=== PATIENT | female | born 1970 | race Caucasian/White ===

== ENCOUNTER 2018-08-04 09:54 | Emergency (ER) | payer BC ==
[2018-08-04 10:02] VITALS: BP 111/79
--- NOTE | 2018-08-04 10:07 | EDPHY ---
H & P Stated Complaint: Fooshed 2 days ago-R wrist injury Time Seen by Provider: 08/04/18 10:06 - Personal History LMP (Females 10-55): 22-28 Days Ago - Medical/Surgical History Hx Asthma: No Hx Chronic Respiratory Disease: No Hx Diabetes: No Hx Cardiac Disease: No Hx Renal Disease: No Hx Cirrhosis: No Hx Alcoholism: No Hx HIV/AIDS: No Hx Splenectomy or Spleen Trauma: No Other PMH: liposarcoma - Social History Smoking Status: Never smoked Constitutional: Initial Vital Signs Temperature (C) 36.4 C 08/04/18 10:00 Heart Rate 78 08/04/18 10:00 Respiratory Rate 16 08/04/18 10:00 Blood Pressure 111/79 08/04/18 10:00 O2 Sat (%) 97 08/04/18 10:00 O2 Delivery Mode Room Air Allergies/Adverse Reactions: codeine Allergy (Verified 08/04/18 09:59) ondansetron [From Zofran] Allergy (Verified 08/04/18 09:59) Home Medications: Medication Instructions Recorded DEXILANT 08/04/18 Medical Decision Making - Diagnostics Imaging Results: Imaging Impressions Wrist X-Ray 08/04/18 10:03 Impression: Negative for fracture. Imaging: I viewed and interpreted images myself ED Course/Re-evaluation: CHIEF COMPLAINT: Right wrist injury HISTORY OF PRESENT ILLNESS: This is a healthy 48 y/o female who tripped and fell on her outstretched right wrist two days ago and complains of right wrist pain. She has normal range of motion, but flexion does elicit some pain. No weakness, paresthesias, or other trauma. REVIEW OF SYSTEMS: A comprehensive 10 system review of systems is otherwise negative aside from elements mentioned in the history of present illness and medical decision making. PHYSICAL EXAM: HR, BP, O2 Sat, RR. Temp noted General Appearance: Alert, well hydrated, appropriate, and non-toxic appearing. Head: Atraumatic without scalp tenderness or obvious injury Eyes: Pupils equal, round, reactive to light and accommodation, EOMI, no trauma , no injection. Nose: Atraumatic, no rhinorrhea, clear. Throat: Mucus membranes moist. Neck: Supple. Respiratory: No distress. Cardiovascular: Right radial pulse intact. Good capillary refill all extremities. Musculoskeletal: Normal active ROM of all extremities, atraumatic. Tenderness over right anatomical snuffbox. Neurological: Alert, appropriate, and interactive. Nonfocal. Skin: No rashes, good turgor, no nodules on palpation. PAST MEDICAL HISTORY: Denies PAST SURGICAL HISTORY: Denies SOCIAL HISTORY: . Lives in [place]. DIAGNOSTICS/PROCEDURES/CRITICAL CARE TIME: Right wrist x-ray: no fracture. DIFFERENTIAL DIAGNOSIS: The differential diagnosis for the patient's injury included but was not limited to sprain, fracture, ligamentous injury, contusion , muscular strain. MEDICAL DECISION MAKING: This is a healthy 48 y/o female who presents with a right wrist injury secondary to a mechanical fall two days ago. She has mild tenderness over her right anatomical snuff box with normal range of motion and no visible trauma. She is neurovascularly intact. X-ray is negative for fracture. She has been placed in a velcro thumbspika splint and will be discharged with standard sprain care and follow up instructions. Referral to ortho provided. She is comfortable with this plan. Departure - Departure Disposition: Home, Routine, Self-Care Clinical Impression: Sprain of wrist, right Qualifiers: Encounter type: initial encounter Qualified Code(s): S63.501A - Unspecified sprain of right wrist, initial encounter Condition: Good Instructions: Wrist Sprain (ED) Additional Instructions: 1. Wear splint until follow up. Okay to take off to shower. 2. Use Tylenol and ibuprofen as directed as needed for pain over the next few days. 3. Follow up with orthopedist in the next week for reassessment if not completely better. 4. Return for worsening of condition. Referrals: Yoselin Hall MD [Primary Care Provider] - As per Instructions Yvon Carr MD [Medical Doctor] - As per Instructions Report Scribed for: Maxwell Figueroa Report Scribed by: Izzy Strauss Date of Report: 08/04/18 Time of Report: 12:45
== END 2018-08-04 10:33 | disposition home or self-care (01) ==
DX: S63.501A Unspecified sprain of right wrist, initial encounter (principal); W19.XXXA Unspecified fall, initial encounter; Y92.9 Unspecified place or not applicable; Y93.9 Activity, unspecified; Y99.9 Unspecified external cause status
CPT/HCPCS: L3807

== ENCOUNTER 2018-08-13 08:11 | Day surgery (SDC) | payer BC ==
[2018-08-13] MEDS ORDERED: LIDOCAINE 1% 2 ML INJ ID PRN (08:16)
[2018-08-13] MEDS ORDERED: LR 1,000 ML IV ONE (08:16)
[2018-08-13] MEDS ORDERED: LIDOCAINE 1% 300 MG/30 ML SDV ONE (08:45)
[2018-08-13] MEDS ORDERED: VASOPRESSIN 20 UNIT/ML VIAL ONE (08:45)
[2018-08-13] MEDS ORDERED: SILVER NITRATE APPLICATOR 1 APPL TP ONE (08:45)
[2018-08-13] MEDS ORDERED: ACETIC ACID IRR SOLN 0.25% 1,000 ML BTL ONE (08:46)
[2018-08-13] MEDS ORDERED: MIDAZOLAM 2 MG/2 ML VIAL IVP ONE (09:00)
--- NOTE | 2018-08-13 09:00 | PDANEPAE ---
ANE History of Present Illness CERVICAL conization ANE Past Medical History - Cardiovascular History Hx Hypertension: No Hx Arrhythmias: No Hx Chest Pain: No Hx Coronary Artery / Peripheral Vascular Disease: No Hx CHF / Valvular Disease: No Hx Palpitations: No - Pulmonary History Hx COPD: No Hx Asthma/Reactive Airway Disease: No Hx Recent Upper Respiratory Infection: No Hx Oxygen in Use at Home: No Hx Sleep Apnea: No Sleep Apnea Screening Result - Last Documented: Negative - Neurologic History Hx Cerebrovascular Accident: No Hx Seizures: No Hx Dementia: No - Endocrine History Hx Diabetes: No - Renal History Hx Renal Disorders: Yes Renal History Comment: 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 constipation - Other Health History Other Health History: none - Chronic Pain History Chronic Pain: No - Surgical History Prior Surgeries: liposarcoma removal in retroperitonial surgery x6. breast implants. cyst removed from left breast. deviated septum ANE Review of Systems Review of systems is: negative Review of Systems: - Exercise capacity METS (RN): 6 METS ANE Patient History - Allergies Allergies/Adverse Reactions: codeine Allergy (Verified 08/09/18 10:56) light- headed, passed out ondansetron [From Zofran] Allergy (Verified 08/09/18 10:56) dry heaves - Home Medications Home medications: home medication list seen and reviewed Home Medications: DEXILANT 08/04/18 [Last Taken 08/12/18] Ranitidine HCl BID AT 7AM AND 3PM 08/09/18 [Last Taken 08/13/18 0627] - NPO status NPO Since - Liquids (Date): 08/13/18 NPO Since - Liquids (Time): 06:27 NPO Since - Solids (Date): 08/12/18 NPO Since - Solids (Time): 19:30 - Anes Hx Anes Hx: no prior problems - Smoking Hx Smoking Status: Never smoked - Family Anes Hx Family Hx Anesthesia Complications: none ANE Labs/Vital Signs - Vital Signs Blood Pressure: 117/88 Heart Rate: 62 Respiratory Rate: 16 O2 Sat (%): 97 Height: 172.72 cm Weight: 58.967 kg ANE Physical Exam - Airway Neck exam: FROM Mallampati Score: Class 1 Mouth exam: normal dental/mouth exam - Pulmonary Pulmonary: no respiratory distress - Cardiovascular Cardiovascular: regular rate and rhythym - ASA Status ASA Status: II ANE Anesthesia Plan Anesthesia Plan: GA with mask
[2018-08-13] MEDS ORDERED: MONSELS-FERRIC SUBSULFATE 8 GM SDV TP ONE (09:02)
[2018-08-13] MEDS ORDERED: MIDAZOLAM 2 MG/2 ML VIAL ONE (09:06)
[2018-08-13] MEDS ORDERED: PROPOFOL 200 MG/20 ML VIAL ONE (09:07)
[2018-08-13] MEDS ORDERED: fentaNYL 100 MCG/2 ML INJ ONE ×2 (09:07→11:10)
[2018-08-13] MEDS ORDERED: LIDOCAINE 2% 5 ML SDV ONE (09:07)
[2018-08-13] MEDS ORDERED: POTASSIUM IODIDE/IODINE (LUGOL'S SOLN) 500 ML TP ONE (09:30)
--- NOTE | 2018-08-13 09:38 | PDGENHP ---
History and Physical - Chief Complaint cervical dysplasia - History of Present Illness Persistent cervical dysplasia on colposcopy. pt is done with childbearing. Due to large past surgical history, pt has opted to proceed with cold knife cone biopsy. No other issues today. History Information - Allergies/Home Medication List Allergies/Adverse Reactions: codeine Allergy (Verified 08/09/18 10:56) light- headed, passed out ondansetron [From Zofran] Allergy (Verified 08/09/18 10:56) dry heaves Home Medications: DEXILANT 08/04/18 [Last Taken 08/12/18] Ranitidine HCl BID AT 7AM AND 3PM 08/09/18 [Last Taken 08/13/18 0627] I have personally reviewed and updated: family history, medical history, social history, surgical history (Lioposarcoma - numerous surgeries) - Surgical History Additional surgical history: numerous laparotomies for liposarcoma - Family History Positive for: non-pertinent - Social History Smoking Status: Never smoked Alcohol Use: Occasionally Drug Use: None Review of Systems Review of Systems: ROS: 10pt was reviewed & negative except for what was stated in HPI & below Physical Exam Physical Exam: Temp Pulse Resp BP Pulse Ox 36.7 C 62 16 117/88 H 97 08/13/18 08:31 08/13/18 09:00 08/13/18 09:00 08/13/18 09:00 08/13/18 09:00 Constitutional: no apparent distress Eyes: PERRL Ears, Nose, Mouth, Throat: moist mucous membranes Cardiovascular: regular rate and rhythym Respiratory: no respiratory distress Gastrointestinal: normoactive bowel sounds (vertical midline scar) Genitourinary: no bladder fullness Skin: warm, normal color Musculoskeletal: full muscle strength, no muscle tenderness Neurologic: AAOx3 Psychiatric: interacting appropriately Assessment & Plan Assessment: 48 year old with persistent cervical dysplasia. Will proceed with a cold knife cone biopsy of cervix. Written informed consent reviewed, brought over from office. Aga Shields MD, [facility]
[2018-08-13] MEDS ORDERED: BUPIVACAINE/EPI 0.5% 30 ML SDV ONE (09:55)
[2018-08-13] MEDS ORDERED: DEXAMETHASONE 4 MG/ML VIAL ONE (09:56)
[2018-08-13] MEDS ORDERED: KETOROLAC 30 MG/1 ML SDV ONE (10:05)
[2018-08-13] MEDS ORDERED: ePHEDrine SULFATE 25 MG/5 ML SYR ONE (10:05)
[2018-08-13] MEDS ORDERED: VASOPRESSIN 25 UNIT in NS 250 ML MISC ONE (10:30)
[2018-08-13] MEDS ORDERED: HYDROmorphONE/DILAUDID 2 MG/ML INJ IVP PRN (10:44)
[2018-08-13] MEDS ORDERED: ACETAMINOPHEN 500 MG TAB PO PRN (10:44)
[2018-08-13] MEDS ORDERED: oxyCODONE IR 5 MG TAB PO PRN (10:44)
[2018-08-13] MEDS ORDERED: HYDROCODONE/APAP 5/325 TAB PO PRN (10:44)
[2018-08-13] MEDS ORDERED: PROMETHAZINE HCL 25 MG/ML INJ IVP PRN (10:44)
[2018-08-13] MEDS ORDERED: LR 500 ML IV PRN (10:44)
[2018-08-13] MEDS ORDERED: METOCLOPRAMIDE 10 MG/2 ML VIAL IVP PRN (10:44)
[2018-08-13] MEDS ORDERED: ALBUTEROL 3 ML DEYVIAL IH PRN (10:44)
[2018-08-13] MEDS ORDERED: NALOXONE HCL 0.4 MG/ML INJ IVP PRN (10:44)
--- NOTE | 2018-08-13 10:44 | POSTANESTH ---
Post Anesthetic Evaluation Cardiovascular Status: Normal, Stable Respiratory Status: Normal, Stable Level of Consciousness/Mental Status: Can Participate in Eval, Mildly Sleepy, Arousable Pain Control: Adequate, Prn Tx Ordered Nausea/Vomiting Control: Adequate, Prn Tx Ordered Complications Possibly Related to Anesthesia: None Noted
[2018-08-13] MEDS: fentaNYL 100 MCG/2 ML INJ IVP PRN ×2 (11:11→11:24)
--- NOTE | 2018-08-13 11:13 | POSTOPPROG ---
Post Op Note Date of Operation: 08/13/18 Surgeon: Aga Shields Anesthesiologist: Herbert Rogers Anesthesia: GET(General Endotracheal) Pre-op Diagnosis: severe cervical dysplasia Post-op Diagnosis: same Indication: NADEEN 3 on ECC and cervical biopsy Procedure: cold knife cone biopsy Findings: acetowhite at 3:00 on colposcopic exam, cervix 3.5cm long Inf/Abcess present in the surg proc area at time of surgery?: No EBL: Minimal Total fluids administered: 800 ml Complications: none Specimen(s): cervical cone biopsy and endocervical curettings
[2018-08-13] MEDS ORDERED: HYDROCODONE/APAP 5/325 TAB ONE (11:45)
[2018-08-13 12:42] VITALS: BP 116/83
--- NOTE | 2018-08-13 14:12 | GOP ---
DATE OF OPERATION: 08/13/2018 SURGEON: Aga Shields MD ANESTHESIA: General endotracheal. ANESTHESIOLOGIST: Herbert Rogers MD PREOPERATIVE DIAGNOSIS: Severe cervical dysplasia. POSTOPERATIVE DIAGNOSIS: Severe cervical dysplasia. PROCEDURE PERFORMED: Cold knife cone biopsy and endocervical curettage. FINDINGS: Mild aceto-white noted at 3 o'clock on colposcopic exam. Cervix was 3.5 cm long. SPECIMENS: Cervical cone biopsy and endocervical curettings. ESTIMATED BLOOD LOSS: 20 mL. INDICATIONS: NADEEN 3 on endocervical curettage and cervical biopsy in this 48- year-old female who has completed childbearing. DESCRIPTION OF PROCEDURE: Written informed consent was reviewed with the patient again in the preoperative area. She was taken to the operating room, placed in the dorsal supine position. When general anesthesia was deemed adequate, she was placed in a modified dorsal lithotomy position using the Yellofin stirrups. She was prepared and draped in standard fashion. A time- out was performed. A speculum was inserted into the vagina. Acetic acid was applied to the cervix and the entire vagina. A tenaculum was placed on the anterior lip of the cervix. 0 Vicryl on the UR6 was used to place stay sutures, 1 on either side of the cervix at the base of the cervix at 3 and 9 o'clock. These stay sutures were used to provide traction. These were placed after a paracervical block was placed with 0.25% Marcaine with epinephrine. A dilute solution of vasopressin with 0.5 units/mL was placed into the stroma of the cervix. A total of 17 mL was used. The cervical length was measured. The straight scalpel was used to circumferentially cut to a depth of approximately 1.5 cm. The angled long blade was then used to cut the top of the cone an additional 1.5 cm. The cone was then fully excised. Endocervical curettings were obtained. It appeared as if the top of the cone actually reached adjacent to the endometrial canal. Cautery was used over the entire base of the cone bed. Monsel's solution was also applied. A small piece of Surgicel was then also placed in the bed of the cone. One length of the stay sutures on either side was cut and the remaining length of each stay suture was sutured together over the base of the cone bed and the Surgicel. Excellent hemostasis was noted. All instruments were removed from the vagina. The patient was extubated in the operating room and taken to the recovery room in stable condition, and sponge, lap, and needle counts were correct x2. TOTAL INTRAVENOUS FLUIDS ADMINISTERED: 800 mL. URINE OUTPUT: Not measured as she voided immediately prior to the procedure. COMPLICATIONS: None. /[id number]/MODL MTDD
== END 2018-08-13 12:38 | disposition home or self-care (01) ==
LOC: FSGY 08:11
PROVIDERS: ATTEND Hospitalist
PROC: 0UBC7ZX Excision of Cervix, Via Natural or Artificial Opening, Diagnostic (ICD-10-PCS; principal; 2018-08-13 09:30)
DX: N87.9 Dysplasia of cervix uteri, unspecified (principal); K21.9 Gastro-esophageal reflux disease without esophagitis; Z85.831 Personal history of malignant neoplasm of soft tissue; Z92.3 Personal history of irradiation
CPT/HCPCS: J1100; J1885; J2250; J2704; J3010